=== PATIENT | female | born 1970 | race African-American/Black ===

== ENCOUNTER 2021-02-16 09:36 | Emergency (ER) | payer MEDICARE, MEDICAID ==
[~2021-02-16] VITALS: Ht 170.2 cm; Wt 68.0 kg
[2021-02-16 09:47] VITALS: BP 116/62
== END 2021-02-16 13:40 | disposition left against medical advice (07) ==
LOC: ER 09:59
DX: M54.5 Low back pain (principal)
CPT/HCPCS: 99281

== ENCOUNTER 2025-04-22 14:46 | Emergency (ER) | payer MEDICARE, MEDICAID ==
[~2025-04-22] VITALS: Ht 162.6 cm; Wt 70.0 kg
[2025-04-22 14:58] VITALS: TEMP 36.8; O2SAT 96
[2025-04-22] MEDS: SODIUM CHLORIDE 0.9% 1,000 ML IV ONE (15:18)
[2025-04-22] MEDS: ONDANSETRON HCL 4MG/2ML INJ IV ONE (15:31)
[2025-04-22] MEDS: FAMOTIDINE 20MG/2ML VIAL IV ONE (15:31)
[2025-04-22 16:25] LABS: BASOPHILS % 0.4 % (0.0-2.0); EOSINOPHILS % 0.7 % (0.0-5.0); HEMATOCRIT. 30.6 % (36.0-48.0); HEMOGLOBIN. 9.8 g/dL (12.0-16.0); LYMPHOCYTES % 20.9 % (20.0-50.0); MEAN PLATELET VOLUME 8.9 fl (7.4-10.4); MONOCYTES % 6.5 % (2.0-8.0); NEUTROPHILS % 71.5 % (40.0-76.0); PLATELET 213 x1000/uL (130-400); RED BLOOD CELL COUNT 4.26 mill/uL (4.2-5.4); RED CELL DISTRIBUTION WIDTH 14.6 % (11.6-14.6)
[2025-04-22 16:38] LABS: CREATININE 0.8 mg/dL (0.6-1.0)
[2025-04-22 16:39] LABS: HCG SCREEN NEGATIVE; UREA NITROGEN BLOOD 8 mg/dL (9-23)
[2025-04-22 16:40] LABS: ASPARTATE AMINOTRANSFERASE 17 IU/L (<34); BILIRUBIN DIRECT < 0.1 mg/dL (<=3.0)
[2025-04-22 16:41] LABS: BILIRUBIN TOTAL 0.3 mg/dL (0.1-1.0); PROTEIN TOTAL 6.9 g/dL (6.0-8.3)
[2025-04-22] MEDS: DICYCLOMINE HCL 10MG/ML 2ML VIAL IM STA (16:46)
[2025-04-22 17:00] VITALS: BP 135/89; PULSE 82; RESP 16; O2SAT 97
[2025-04-22] MEDS ORDERED: ONDA-239 PO (17:04)
== END 2025-04-22 17:17 | disposition home or self-care (01) ==
LOC: ER 14:46
DX: K52.9 Noninfective gastroenteritis and colitis, unspecified (principal); R55 Syncope and collapse; R51.9 Headache, unspecified; R11.2 Nausea with vomiting, unspecified; Z79.899 Other long term (current) drug therapy
CPT/HCPCS: 80076; 80048; 80320; 84703; 83690; 85025; 36415; 96361; 96372; 96374; 99284; J0500; J1308; J2405; J7030; A4606; G0480